=== PATIENT | male | born 1960 | race African-American/Black ===

== ENCOUNTER 2016-06-28 06:42 | Emergency (ER) | payer SELFPAY ==
[~2016-06-28] VITALS: Ht 172.7 cm; Wt 59.0 kg
[2016-06-28] MEDS ORDERED: HYDR-3326 PO (06:57)
[2016-06-28] MEDS ORDERED: ALPR0.255 PO (07:00)
[2016-06-28] MEDS ORDERED: LORAZEPAM 0.5 MG TABLET PO ONE (07:45)
[2016-06-28] MEDS ORDERED: HYDROCODONE/APAP 10-325 MG TABLET PO ONE (07:45)
[2016-06-28] MEDS ORDERED: QUETIAPINE FUMARATE 25 MG TABLET PO ONE (07:45)
[2016-06-28] MEDS ORDERED: LORAZEPAM 1 MG TABLET ONE (07:54)
[2016-06-28] MEDS ORDERED: QUETIAPINE FUMARATE 100 MG TABLET ONE (07:54)
[2016-06-28] MEDS ORDERED: HYDROCODONE/APAP 10-325 MG TABLET ONE (07:54)
--- NOTE | 2016-06-28 07:54 | NUR ---
Pt evaluated for neck and BLE pain, and received a refill for his depression and chronic pain. Patient discharged to home in stable conditon. Written and verbal after care instructions given. Patient verbalizes understanding of instructions. Instructed not to drive, ambulates w/ steady gait.
[2016-06-28 07:57] VITALS: BP 148/98
== END 2016-06-28 07:58 | disposition home or self-care (01) ==
LOC: ER 06:46
DX: M54.2 Cervicalgia (principal); G89.29 Other chronic pain; I10 Essential (primary) hypertension; F31.9 Bipolar disorder, unspecified; F20.9 Schizophrenia, unspecified; F41.9 Anxiety disorder, unspecified; M19.90 Unspecified osteoarthritis, unspecified site; F10.20 Alcohol dependence, uncomplicated; Z95.5 Presence of coronary angioplasty implant and graft; Z88.6 Allergy status to analgesic agent; Z88.8 Allergy status to other drugs, medicaments and biological substances
CPT/HCPCS: A4663